=== PATIENT | female | born 1990 | race Two or more races ===

== ENCOUNTER 2023-12-22 19:40 | Emergency (ER) | payer MEDICAID, OTHER ==
[~2023-12-22] VITALS: Ht 160 cm; Wt 90.7 kg
[2023-12-22 20:34] VITALS: BP 130/84; PULSE 91; RESP 18; O2SAT 100
[2023-12-22] MEDS: KETOROLAC TROMETH 60MG/2ML VIAL IM ONE (23:35)
[2023-12-22] MEDS ORDERED: NITR-87 PO (23:49)
[2023-12-22] MEDS ORDERED: IBUP-1456 PO (23:49)
== END 2023-12-22 23:58 | disposition home or self-care (01) ==
LOC: ER 19:40
DX: N39.0 Urinary tract infection, site not specified (principal)
CPT/HCPCS: 81002; 96372; 99283; J1885